=== PATIENT | male | born 1930 | race Caucasian/White ===

== ENCOUNTER 2017-03-10 10:22 | Emergency (ER) | payer BC ==
[~2017-03-10] VITALS: Ht 165.1 cm; Wt 58.8 kg
--- NOTE | 2017-03-10 11:18 | EMERGENCY ROOM VISIT NOTE ---
History Report prepared by Tomer: Kofi Blount Under the Supervision of: Dr. Kwabena Glover M.D. First contact with patient: 10:36 Chief Complaint: FALL Stated Complaint: FALL,PAIN WHEN WALKING History of Present Illness The patient is an 86 year old male who presents to the Emergency Room with complaints of a sudden fall occurring a week ago, and he states that he hurt his left hip which started hurting yesterday. The patient states that he fell a week ago, and he has not been able to walk due to the pain, though he states that the pain is slowly decreasing. The patient states that he was getting out of bed and he slipped. He denies any loss of consciousness, hitting his head, neck pain, chest pain, abdominal pain, and back pain. He states that he has been having some left hip weakness due to the pain. The patient's states that he is not on any blood thinners, and he is having early Alzheimer's symptoms. He denies any diabetes. The states that the patient only eats tofu and drinks Ensure, and this is why he is weak. Source of History: patient, spouse/significant other Onset: a week ago Position: other (global) Quality: other (fall) Timing: other (sudden) Associated Symptoms: No abdominal pain, No back pain, No chest pain, No neck pain Note: Associated symptoms: Left hip pain Review of Systems See HPI for pertinent positives & negatives. A total of 10 systems reviewed and were otherwise negative. Past Medical & Surgical Medical Problems: (1) Alzheimer's dementia (2) Sacral fracture Old medical records were reviewed. Nurse's notes were reviewed and I agree with. Social History Smoking Status: Never Smoker Marital Status: Housing Status: lives with significant other Occupation Status: retired Current/Historical Medications Scheduled Cholecalciferol (Vitamin D3), 1 TAB PO DAILY Cyanocobalamin (Vitamin B-12), 1 TAB PO DAILY Donepezil Hydrochloride (Aricept), 1 TAB PO DAILY Finasteride (Proscar), 1 TAB PO DAILY Memantine (Namenda), 1 TAB PO DAILY Terazosin Hcl (Hytrin), 1 CAP PO DAILY Allergies Coded Allergies: No Known Allergies (Unverified , 03/10/17) Physical Exam Vital Signs Date Time Temp Pulse Resp B/P Pulse Ox O2 Delivery O2 Flow Rate FiO2 03/10/17 11:58 63 16 133/74 94 Room Air 03/10/17 10:31 36.4 86 17 102/56 92 Room Air Physical Exam General: Non-ill appearing older male in no acute distress. Mild dementia but answers all questions appropriately. HEENT: Normal cephalic atraumatic. Pupils are equal round and reactive to light. Extraocular movements are intact. Oropharynx is pink with moist mucous membranes. No swelling of the mouth lips or tongue. Neck: Supple with a midline trachea. No meningeal signs or stiffness, no JVD or bruits. No Stridor. Chest: Clear to auscultation bilaterally. No wheezes or rhonchi. No increased work of breathing. Heart: regular rate and rhythm. Abdomen: No signs of trauma. Soft nontender, nondistended without rebound guarding or rigidity. Extremities: The extremity is not shortened or deformed. Minimal tenderness with movement of the hip. Mild tenderness to the posterior hip. No cyanosis clubbing or edema. No calf tenderness or assymetry Spine/Back. Non tender to palpation. No CVA tenderness Skin: Good turgor without rashes. Neurologic exam: Cranial nerves two through 12 are intact. Motor and sensation are intact and symmetrical throughout. Medical Decision & Procedures ER Provider Diagnostic Interpretation: Radiology results as stated below per my review and radiologist interpretation: LUMBAR SPINE CT, PELVIS CT CT DOSE: 914.77 mGy.cm HISTORY: Fall. Lumbar spine and pelvic pain. eval for trauma TECHNIQUE: Multiaxial CT images of the lumbar spine and pelvis were performed and reformatted in the sagittal and coronal plane without the use of contrast. COMPARISON: None. FINDINGS: No fractures or subluxation within the lumbar spine. Mild to moderate disc space narrowing at L4-L5. Moderate disc space narrowing at L5-S1. There are a few scattered sclerotic foci within the lumbar spine and sacrum. These favor bone islands. Paraspinal soft tissues are unremarkable. Nondisplaced horizontal fracture within the sacrum at the S2 level. Mild presacral edema. No fracture or dislocation within the bilateral hips. IMPRESSION: 1. No fracture or subluxation within the lumbar spine. 2. Nondisplaced sacral fracture at the S2 level. Electronically signed by: Giles Brizuela M.D. 03/10/2017 11:54 AM Dictated Date/Time: 03/10/2017 11:[address], PELVIS CT CT DOSE: 914.77 mGy.cm HISTORY: Fall. Lumbar spine and pelvic pain. eval for trauma TECHNIQUE: Multiaxial CT images of the lumbar spine and pelvis were performed and reformatted in the sagittal and coronal plane without the use of contrast. COMPARISON: None. FINDINGS: No fractures or subluxation within the lumbar spine. Mild to moderate disc space narrowing at L4-L5. Moderate disc space narrowing at L5-S1. There are a few scattered sclerotic foci within the lumbar spine and sacrum. These favor bone islands. Paraspinal soft tissues are unremarkable. Nondisplaced horizontal fracture within the sacrum at the S2 level. Mild presacral edema. No fracture or dislocation within the bilateral hips. IMPRESSION: 1. No fracture or subluxation within the lumbar spine. 2. Nondisplaced sacral fracture at the S2 level. Electronically signed by: Giles Brizuela M.D. 03/10/2017 11:54 AM Dictated Date/Time: 03/10/2017 11:46 AM Laboratory Results 03/10/17 11:15 Red Blood Count 4.32, Mean Corpuscular Volume 95.8, Mean Corpuscular Hemoglobin 31.9, Mean Corpuscular Hemoglobin Concent 33.3, Mean Platelet Volume 11.8, Neutrophils (%) (Auto) 83.2, Lymphocytes (%) (Auto) 7.9, Monocytes (%) (Auto) 7.7, Eosinophils (%) (Auto) 0.7, Basophils (%) (Auto) 0.1, Neutrophils # (Auto) 6.18, Lymphocytes # (Auto) 0.59, Monocytes # (Auto) 0.57, Eosinophils # (Auto) 0.05, Basophils # (Auto) 0.01 Test 03/10/17 11:15 White Blood Count 7.43 K/uL (4.8-10.8) Red Blood Count 4.32 M/uL (4.7-6.1) Hemoglobin 13.8 g/dL (14.0-18.0) Hematocrit 41.4 % (42-52) Mean Corpuscular Volume 95.8 fL (80-100) Mean Corpuscular Hemoglobin 31.9 pg (25-34) Mean Corpuscular Hemoglobin Concent 33.3 g/dl (32-36) Platelet Count 254 K/uL (130-400) Mean Platelet Volume 11.8 fL (7.4-10.4) Neutrophils (%) (Auto) 83.2 % Lymphocytes (%) (Auto) 7.9 % Monocytes (%) (Auto) 7.7 % Eosinophils (%) (Auto) 0.7 % Basophils (%) (Auto) 0.1 % Neutrophils # (Auto) 6.18 K/uL (1.4-6.5) Lymphocytes # (Auto) 0.59 K/uL (1.2-3.4) Monocytes # (Auto) 0.57 K/uL (0.11-0.59) Eosinophils # (Auto) 0.05 K/uL (0-0.5) Basophils # (Auto) 0.01 K/uL (0-0.2) RDW Standard Deviation 46.1 fL (36.4-46.3) RDW Coefficient of Variation 13.2 % (11.5-14.5) Immature Granulocyte % (Auto) 0.4 % Immature Granulocyte # (Auto) 0.03 K/uL (0.00-0.02) Prothrombin Time 11.4 SECONDS (9.0-12.0) Prothromb Time International Ratio 1.1 (0.9-1.1) Activated Partial Thromboplast Time 25.8 SECONDS (21.0-31.0) Partial Thromboplastin Ratio 1.0 Total Bilirubin 0.5 mg/dl (0.2-1) Direct Bilirubin 0.1 mg/dl (0-0.2) Aspartate Amino Transf (AST/SGOT) 15 U/L (15-37) Alanine Aminotransferase (ALT/SGPT) 20 U/L (12-78) Alkaline Phosphatase 209 U/L (45-117) Troponin I < 0.015 ng/ml (0-0.045) Total Protein 6.2 gm/dl (6.4-8.2) Albumin 3.0 gm/dl (3.4-5.0) Lipase 127 U/L (73-393) Laboratory studies as stated above per my review. ECG Indication: other (fall) Rate (beats per minute): 70 Rhythm: normal sinus, other (sinus arrhythmia) Findings: other (poor R wave progression, non-specific T wave abnormality) Comparison ECG Date: 05/08/1999 Change: Bradycardia has resolved ED Course 1036: Past medical records reviewed. The patient was evaluated in room C3, and a complete history and physical examination were performed. 1217: I reevaluated the patient, and he was feeling well. 1221: I talked to the case mgr about this patient's case. 1250: I discussed the patient's case with Jane Pereira PA-C. She is going to evaluate the patient for further treatment Medical Decision Differentials include, but are not limited to; pelvic fracture, hip fracture, electrolyte or metabolic abnormality This ptient comes in as described above. He had a mechanical fall about 6 days ago and has pain along his left posterior hip. He's been unable ambulate because of this and and has been using a wheelchair. His daughter came in town and brought him to the ER. He has no other complaints there is no syncope or chest pain. EKG and multiple blood tests was obtained there is nothing to suggest acute coronary syndrome or arrhythmia. He has nothing to suggest infection or significant anemia. CAT scan was obtained that shows sacral fracture. He's been having a hard time with this and the family does not think he's safe to be at home. I had our case management team evaluate him in the ER. They have attempted to get him placed in [facility] for rehabilitation. Unfortunately [facility] cannot take him today but likely can tomorrow. In light of this, the patient will be admitted for PT and OT evaluation as well as likely placement in a rehabilitation facility. Consults Time Called: 1225 Consulting Physician: Jane Pereira PA-C Returned Call: 1250 I discussed the patient's case with Jane Pereira PA-C. She is going to evaluate the patient for further treatment Impression Primary Impression: Sacral fracture Additional Impressions: Ambulatory dysfunction Alzheimer's dementia Scribe Attestation The scribe's documentation has been prepared under my direction and personally reviewed by me in its entirety. I confirm that the note above accurately reflects all work, treatment, procedures, and medical decision making performed by me. Departure Information Dispostion Being Evaluated By Hospitalist Kenny Ly M.D. (PCP) Patient Instructions My [facility] Problem Qualifiers
[2017-03-10 11:43] LABS: BASO % 0.1 %; BASO ABS # 0.01 K/uL (0-0.2); COMPLETE YES; EOS % 0.7 %; HEMATOCRIT 41.4 % (42-52); IG% 0.4 %; LYMPH % 7.9 %; LYMPH ABS # 0.59 K/uL (1.2-3.4); MEAN CELL VOLUME 95.8 fL (80-100); MEAN CORPUSCULAR HEMOGLOBIN 31.9 pg (25-34); MEAN CORPUSCULAR HGB CONC 33.3 g/dl (32-36); MEAN PLATELET VOLUME 11.8 fL (7.4-10.4); MONO % 7.7 %; NEUT % 83.2 %; PLATELET COUNT 254 K/uL (130-400); RED BLOOD COUNT 4.32 M/uL (4.7-6.1); WHITE BLOOD COUNT 7.43 K/uL (4.8-10.8)
[2017-03-10] MEDS ORDERED: NMN5 PO (11:51)
[2017-03-10] MEDS ORDERED: FINA5TAB PO (11:51)
[2017-03-10] MEDS ORDERED: CHOL1000 PO (11:51)
[2017-03-10] MEDS ORDERED: DONE10TA12 PO (11:51)
[2017-03-10] MEDS ORDERED: CYAN100T PO (11:51)
[2017-03-10] MEDS ORDERED: HYT/2 PO (11:51)
--- NOTE | 2017-03-10 11:56 | DIAGNOSTIC IMAGING REPORT ---
LUMBAR SPINE CT, PELVIS CT CT DOSE: 914.77 mGy.cm HISTORY: Fall. Lumbar spine and pelvic pain. eval for trauma TECHNIQUE: Multiaxial CT images of the lumbar spine and pelvis were performed and reformatted in the sagittal and coronal plane without the use of contrast. COMPARISON: None. FINDINGS: No fractures or subluxation within the lumbar spine. Mild to moderate disc space narrowing at L4-L5. Moderate disc space narrowing at L5-S1. There are a few scattered sclerotic foci within the lumbar spine and sacrum. These favor bone islands. Paraspinal soft tissues are unremarkable. Nondisplaced horizontal fracture within the sacrum at the S2 level. Mild presacral edema. No fracture or dislocation within the bilateral hips. IMPRESSION: 1. No fracture or subluxation within the lumbar spine. 2. Nondisplaced sacral fracture at the S2 level. Electronically signed by: Giles Brizuela M.D. 03/10/2017 11:54 AM Dictated Date/Time: 03/10/2017 11:46 AM
[2017-03-10 11:58] LABS: INR 1.1 (0.9-1.1); PROTHROMBIN TIME (PATIENT) 11.4 SECONDS (9.0-12.0)
[2017-03-10 12:01] LABS: BLOOD UREA NITROGEN 26 mg/dl (7-18); BUN/CREATININE RATIO 29.9 (10-20); CALCIUM 8.5 mg/dl (8.5-10.1); CARBON DIOXIDE 28 mmol/L (21-32); CHLORIDE 108 mmol/L (98-107); CREATININE 0.87 mg/dl (0.60-1.40); GLUCOSE 122 mg/dl (70-99); POTASSIUM 3.9 mmol/L (3.5-5.1); SODIUM 143 mmol/L (136-145)
[2017-03-10 12:06] LABS: ALKALINE PHOSPHATASE 209 U/L (45-117); ALT/SGPT 20 U/L (12-78); AST/SGOT 15 U/L (15-37)
[2017-03-10] MEDS ORDERED: MAGNESIUM HYDROXIDE SUSP 30 ML UDC PO PRN (13:45)
[2017-03-10] MEDS ORDERED: ONDANSETRON INJ 2 MG/ML 2 ML VIAL IV PRN (13:45)
[2017-03-10] MEDS ORDERED: ACETAMINOPHEN 325 MG TAB PO PRN (13:45)
--- NOTE | 2017-03-10 13:46 | History and Physical ---
History & Physical Date & Time of Service: March 10, 2017 at 12:59 Chief Complaint: Fall,Pain When Walking Primary Care Physician: Ji Reyes M.D. History of Present Illness Source: patient, family, clinic records, hospital records This patient is a pleasant 86-year-old male that presents to the emergency department with complaints of left hip pain and lower back pain. The patient sustained a fall 6 days ago while getting out of bed. He reports that he slipped. He denies any symptoms prior such as dizziness, heart palpitations, chest pain or pressure or severe headache. He landed on his buttocks. He denies hitting his head. He has had difficulty ambulating since the fall. Any movement seems to make the pain worse. He has been using Aspercreme, which helps with the pain at rest. He denies any recent illnesses. He does note a poor appetite. He is a vegetarian. The patient's says that he only eats a few pieces of tofu and and drinks Ensure daily. The patient does note that a few weeks ago he was having difficulty swallowing. He had a sensation that something was getting caught in his throat. This has improved over the last several weeks on its own. Past Medical/Surgical History Dementia Osteoporosis BPH History of squamous cell carcinoma Mitral regurgitation Family History Omitted secondary to age Social History Smoking Status: Never Smoker Alcohol Use: none Marital Status: Housing status: lives with significant other (lives with his . They spend the long here and the other months in [place]) Occupational Status: retired Multi-Drug Resistant Organisms History of MDRO: No Allergies Coded Allergies: No Known Allergies (Unverified , 03/10/17) Home Medications Scheduled Cholecalciferol (Vitamin D3), 1 TAB PO DAILY Cyanocobalamin (Vitamin B-12), 1 TAB PO DAILY Donepezil Hydrochloride (Aricept), 1 TAB PO DAILY Finasteride (Proscar), 1 TAB PO DAILY Memantine (Namenda), 1 TAB PO DAILY Terazosin Hcl (Hytrin), 1 CAP PO DAILY Review of Systems 10 system review performed and negative unless noted in HPI or below Physical Exam Vital Signs Date Time Temp Pulse Resp B/P Pulse Ox O2 Delivery O2 Flow Rate FiO2 03/10/17 11:58 63 16 133/74 94 Room Air 03/10/17 10:31 36.4 86 17 102/56 92 Room Air General Appearance: no apparent distress, + pertinent finding (lying flat in bed) Head: normocephalic Eyes: EOMI ENT: + pertinent finding (oral mucosa fairly moist) Neck: no JVD Respiratory/Chest: lungs clear Cardiovascular: regular rate, rhythm Abdomen/GI: normal bowel sounds, non tender, soft Extremities/Musculoskelatal: no calf tenderness, no pedal edema, + pertinent finding (healing eschar noted to the left balderrama) Neurologic/Psych: alert (alert and answering questions appropriately. Unsure of the year. Significant difficulty with leg raise bilaterally. Strength 3/5 bilaterally in the lower extremities.) Skin: warm/dry Diagnostics Laboratory Results Results Past 24 Hours Test 03/10/17 11:15 Range/Units White Blood Count 7.43 4.8-10.8 K/uL Red Blood Count 4.32 4.7-6.1 M/uL Hemoglobin 13.8 14.0-18.0 g/dL Hematocrit 41.4 42-52 % Mean Corpuscular Volume 95.8 80-100 fL Mean Corpuscular Hemoglobin 31.9 25-34 pg Mean Corpuscular Hemoglobin Concent 33.3 32-36 g/dl Platelet Count 254 130-400 K/uL Mean Platelet Volume 11.8 7.4-10.4 fL Neutrophils (%) (Auto) 83.2 % Lymphocytes (%) (Auto) 7.9 % Monocytes (%) (Auto) 7.7 % Eosinophils (%) (Auto) 0.7 % Basophils (%) (Auto) 0.1 % Neutrophils # (Auto) 6.18 1.4-6.5 K/uL Lymphocytes # (Auto) 0.59 1.2-3.4 K/uL Monocytes # (Auto) 0.57 0.11-0.59 K/uL Eosinophils # (Auto) 0.05 0-0.5 K/uL Basophils # (Auto) 0.01 0-0.2 K/uL RDW Standard Deviation 46.1 36.4-46.3 fL RDW Coefficient of Variation 13.2 11.5-14.5 % Immature Granulocyte % (Auto) 0.4 % Immature Granulocyte # (Auto) 0.03 0.00-0.02 K/uL Prothrombin Time 11.4 9.0-12.0 SECONDS Prothromb Time International Ratio 1.1 0.9-1.1 Activated Partial Thromboplast Time 25.8 21.0-31.0 SECONDS Partial Thromboplastin Ratio 1.0 Sodium Level 143 136-145 mmol/L Potassium Level 3.9 3.5-5.1 mmol/L Chloride Level 108 98-107 mmol/L Carbon Dioxide Level 28 21-32 mmol/L Anion Gap 7.0 3-11 mmol/L Blood Urea Nitrogen 26 7-18 mg/dl Creatinine 0.87 0.60-1.40 mg/dl Estimated GFR () 89.9 Estimated GFR (Non- 77.6 BUN/Creatinine Ratio 29.9 10-20 Random Glucose 122 70-99 mg/dl Calcium Level 8.5 8.5-10.1 mg/dl Total Bilirubin 0.5 0.2-1 mg/dl Direct Bilirubin 0.1 0-0.2 mg/dl Aspartate Amino Transf (AST/SGOT) 15 15-37 U/L Alanine Aminotransferase (ALT/SGPT) 20 12-78 U/L Alkaline Phosphatase 209 45-117 U/L Troponin I < 0.015 0-0.045 ng/ml Total Protein 6.2 6.4-8.2 gm/dl Albumin 3.0 3.4-5.0 gm/dl Lipase 127 73-393 U/L Diagnostic Radiology Patient Name: CASTILLO FERRELL Unit Number: [id number] Dictated: 03/10/171145 Transcribed: 03/10/171145 [facility] Printed Date/Time: [~ rep prt dt]/[~ rep prt tm] [~ rep ct labl] - [~ rep ct ivnm] [facility] [place] [address] Dictated: 03/10/171145 Transcribed: 03/10/171145 [facility] Printed Date/Time: [~ rep prt dt]/[~ rep prt tm] [~ rep ct labl] - [~ rep ct ivnm] LUMBAR SPINE CT, PELVIS CT CT DOSE: 914.77 mGy.cm HISTORY: Fall. Lumbar spine and pelvic pain. eval for trauma TECHNIQUE: Multiaxial CT images of the lumbar spine and pelvis were performed and reformatted in the sagittal and coronal plane without the use of contrast. COMPARISON: None. FINDINGS: No fractures or subluxation within the lumbar spine. Mild to moderate disc space narrowing at L4-L5. Moderate disc space narrowing at L5-S1. There are a few scattered sclerotic foci within the lumbar spine and sacrum. These favor bone islands. Paraspinal soft tissues are unremarkable. Nondisplaced horizontal fracture within the sacrum at the S2 level. Mild presacral edema. No fracture or dislocation within the bilateral hips. IMPRESSION: 1. No fracture or subluxation within the lumbar spine. 2. Nondisplaced sacral fracture at the S2 level. Electronically signed by: Giles Brizuela M.D. 03/10/2017 11:54 AM Dictated Date/Time: 03/10/2017 11:46 AM The status of this report is Signed. Draft = Not yet reviewed or approved by Radiologist. Signed = Reviewed and approved by Radiologist. <AttendingPhy></AttendingPhy> <FamilyPhy>Ji Reyes M.D.</FamilyPhy> < PrimaryPhy>Ji Reyes M.D.</PrimaryPhy> <UnitNumber>[id number]</UnitNumber> <VisitNumber>[id number]</VisitNumber> <PatientName>CASTILLO FERRELL</ PatientName> <DateOfBirth>1930</DateOfBirth> <Location>[facility]</Location> < ServiceDate>03/10/17</ServiceDate> <MNE>ESINDI</MNE> <OrderingPhy>Kwabena Glover M.D.</OrderingPhy> <OrderingPhyMNE>f rep ord dr krueger</OrderingPhyMNE> < DictatingPhyMNE>f rep dict dr krueger</DictatingPhyMNE> <CCListMNE>f rep ct pati</ CCListMNE> <AdmittingPhyMNE>f pt admit dr krueger</AdmittingPhyMNE> <AttendingPhyMNE >f pt attend dr krueger</AttendingPhyMNE> <ConsultingPhyMNE>f pt consult dr krueger</ConsultingPhyMNE> <FamilyPhyMNE>f pt fam dr krueger</FamilyPhyMNE> <OtherPhyMNE>f pt other dr krueger</OtherPhyMNE> < PrimaryPhyMNE>f pt prim care dr krueger</PrimaryPhyMNE> <ReferringPhyMNE>f pt referring dr krueger</ReferringPhyMNE> Impression Assessment and Plan 86-year-old male presents to the emergency department with weakness, status post fall found to have a sacral fracture Ambulatory dysfunction, weakness, fall, sacral fracture -Observe on the medical floor -Tylenol every 6 hours as needed for pain. -Ultram for more severe pain -PT/OT evaluation -Case management for placement, [facility] ?dysphagia -speech eval BPH -Continue finasteride and Proscar Dementia -Continue Aricept DVT prophylaxis -Consider chemical means the patient is not discharged tomorrow -TEDS, SCDs CODE STATUS -LEVEL I FULL CODE This chart was completed in part utilizing [employer] Speech Voice Recognition software. Attempts were made to minimize the grammatical errors, random word insertions, pronoun errors and incomplete sentences. Any formal questions or concerns about the content, text or information contained within the body of this dictation should be directly addressed to the provider for clarification. i personally examined pt and verified all rodríguez points w A [facility] PAC feeling OK at rest. no new complaints after seen by A [facility] PAC, otherwise as above ros otherwise negative except for as above vitals noted nad breathing unlabored no pallor or icterus sacral fracture - pain control, PT/OT, rehab once able osteoporosis - on prolia q6 months. check vitamin D level otherwise as above Level of Care Med/Surg Resuscitation Status FULL RESUSCITATION VTE Prophylaxis Given or contraindicated: T.E.D. Stockings, SCD's
[2017-03-10] MEDS ORDERED: IV FLUIDS COMPLETED PRN ×3 (15:15→18:45)
[2017-03-10 15:42] VITALS: BP 157/80; PULSE 71; TEMP 36.4; O2SAT 93; Ht 165.1 cm; Wt 58.8 kg
[2017-03-10 20:30] VITALS: BP 144/85; PULSE 73; O2SAT 94
[2017-03-11 00:03] VITALS: BP 154/85; PULSE 73; TEMP 36.5; O2SAT 95
[2017-03-11 07:47] VITALS: BP 167/97; PULSE 68; TEMP 36.4; O2SAT 95
[2017-03-11] MEDS: ASPIRIN 81 MG ECTAB PO SCH (08:20)
[2017-03-11] MEDS: DONEPEZIL HCL 5 MG TAB PO SCH (08:20)
[2017-03-11] MEDS: FINASTERIDE 5 MG TAB PO SCH (08:20)
[2017-03-11 09:33] VITALS: BP 126/85; PULSE 69; O2SAT 93
[2017-03-11 12:36] LABS: BUN/CREATININE RATIO 29.1 (10-20); CREATININE 0.81 mg/dl (0.60-1.40); MAGNESIUM 2.4 mg/dl (1.8-2.4)
[2017-03-11 12:50] LABS: CALCIUM 9.1 mg/dl (8.5-10.1)
[2017-03-11] MEDS: BOOST PLUS VANILLA PO SCH ×6 (14:22→20:55)
[2017-03-11 16:16] VITALS: BP 100/67; PULSE 89; TEMP 36.9; O2SAT 93
[2017-03-11] MEDS: MEMANTINE 10 MG TAB PO SCH (17:02)
[2017-03-11] MEDS: LIDODERM (LIDOCAINE) PATCH 5% TD SCH (17:02)
--- NOTE | 2017-03-12 00:05 | Progress Note ---
Subjective Date of Service: March 11, 2017. Subjective Pt evaluation today including: conversation w/ patient, conversation w/ family ( at bedside), physical exam, chart review, lab review, review of studies ( pelvic CT), review of inpatient medication list Pain: pelvic/sacral area - mild PO Intake: fair no issues overnight worked with PT and they felt he should consider rehab confirms they just moved from [place] 2 weeks ago the fall he had was his first fall he does have a stooped posture and slow gait at baseline - states he uses a walking stick at home the recent fall was accidental - he denies that he had prodromal dizziness, syncope, etc Problem List Medical Problems: (1) Ambulatory dysfunction Status: Acute Review of Systems Constitutional: No fever Respiratory: No dyspnea on exertion, No shortness of breath Cardiac: No chest pain Abdomen: No pain Musculoskeletal: + see HPI, No joint pain, No muscle pain, No swelling Objective Vital Signs Date Time Temp Pulse Resp B/P Pulse Ox O2 Delivery O2 Flow Rate FiO2 03/11/17 16:16 36.9 89 18 100/67 93 Room Air 03/11/17 16:00 Room Air 03/11/17 09:33 69 93 03/11/17 08:00 Room Air 03/11/17 07:47 36.4 68 20 167/97 95 03/11/17 00:03 36.5 73 16 154/85 95 Room Air 03/11/17 00:00 Room Air Physical Exam General Appearance: no apparent distress, + thin ENT: pharynx normal Neck: no JVD Respiratory/Chest: lungs clear, no respiratory distress, no accessory muscle use Cardiovascular: regular rate, rhythm, no gallop, no murmur Abdomen: normal bowel sounds, non tender, soft, no organomegaly Extremities: no pedal edema Neurologic/Psychiatric: no motor/sensory deficits, alert Comments: back - tender over sacral region to palpation Laboratory Results Last 24 Hours Test 03/11/17 11:25 Sodium Level 140 mmol/L Potassium Level 4.0 mmol/L Chloride Level 106 mmol/L Carbon Dioxide Level 26 mmol/L Anion Gap 8.0 mmol/L Blood Urea Nitrogen 24 mg/dl Creatinine 0.81 mg/dl Est Creatinine Clear Calc Drug Dose 53.4 ml/min Estimated GFR () 92.6 Estimated GFR (Non- 79.9 BUN/Creatinine Ratio 29.1 Random Glucose 87 mg/dl Calcium Level 9.1 mg/dl Magnesium Level 2.4 mg/dl Vitamin B12 Level > 2000 pg/mL Folate > 24.00 ng/mL Assessment and Plan 86yo male - 1. sacral fracture - pain control, nonoperative management, PT, OT. Add lidoderm patches. 2. dementia - resume aricept and namenda. No behavioral disturbance at this time. 3. gait disturbance - check b12, folate, etc due to vegetarian diet. Lspine DJD could be contributing. Neuropathy possible. Gait training via PT, OT. 4. BPH - continue outpatient meds. 5. DVT proph - heparin 5000 BID. dispo - completed PEER to PEER with his insurance co -- acute inpatient rehab denied. cleared for SNF level of care, however address in the AM Continued [facility] stay due to: inadequate oral pain control Discharge planning: uncertain
[2017-03-12 01:09] VITALS: BP 147/93; PULSE 99; TEMP 36.5; O2SAT 93
[2017-03-12 07:25] VITALS: BP 149/91; PULSE 63; TEMP 36.5; O2SAT 93
[2017-03-12] MEDS: BOOST PLUS VANILLA PO SCH ×8 (08:22→21:00)
[2017-03-12] MEDS: FINASTERIDE 5 MG TAB PO SCH (08:22)
[2017-03-12] MEDS: DONEPEZIL HCL 5 MG TAB PO SCH (08:22)
[2017-03-12] MEDS: MEMANTINE 10 MG TAB PO SCH (08:22)
[2017-03-12] MEDS: ASPIRIN 81 MG ECTAB PO SCH (08:22)
[2017-03-12] MEDS: LIDODERM (LIDOCAINE) PATCH 5% TD SCH (08:23)
[2017-03-12] MEDS: HEPARIN SOD 5000 UNIT/0.5 ML CARP SQ SCH ×2 (08:29→21:38)
[2017-03-12] MEDS: ACETAMINOPHEN 500 MG TAB PO SCH ×3 (09:00→21:34)
[2017-03-12] MEDS ORDERED: TRAMADOL HCL 50 MG TAB PO PRN (09:00)
--- NOTE | 2017-03-12 11:59 | Hospitalist Progress Note ---
Hospitalist Progress Note Date of Service March 12, 2017. (Manisha Shrestha ., NANCY) Subjective Pt evaluation today including: conversation w/ patient, physical exam, chart review, lab review, review of studies, review of inpatient medication list Voiding: no voiding problems, no incontinence Patient states he is feeling well. He was sitting upright in bed, eating lunch. Admits to decreased appetite because of decreased activity level- encouraged oral intake and boost. Patient denies any fever, chills, sweats, lightheadedness , dizziness, vision changes, CP, palpitations, edema, SOB, wheezing, cough, abdominal pain, nausea, vomiting, diarrhea, urinary symptoms, melena, numbness/ tingling, weakness, muscle/joint pain, anxiety/depression, active bleeding, or new skin discoloration/changes. (Manisha Shrestha ., SASKIAC) Medications Current Inpatient Medications Medications (Trade) Dose Ordered Sig/Prince Route Start Time Stop Time Status Last Admin Dose Admin Acetaminophen (Tylenol Tab) 650 mg Q4H PRN PO 03/10/17 13:45 04/09/17 13:44 Future Hold Magnesium Hydroxide (Milk Of Magnesia Susp) 30 ml Q6H PRN PO 03/10/17 13:45 04/09/17 13:44 Ondansetron HCl (Zofran Inj) 4 mg Q6H PRN IV 03/10/17 13:45 04/09/17 13:44 Finasteride (Proscar Tab) 5 mg QAM PO 03/11/17 09:00 04/10/17 08:59 03/12/17 08:22 5 MG Donepezil HCl (Aricept Tab) 5 mg QAM PO 03/11/17 09:00 04/10/17 08:59 03/12/17 08:22 5 MG Terazosin HCl (Hytrin Cap) 10 mg HS PO 03/10/17 21:00 04/09/17 20:59 03/11/17 20:55 10 MG Aspirin (Ecotrin Tab) 81 mg QAM PO 03/11/17 09:00 04/10/17 08:59 03/12/17 08:22 81 MG Miscellaneous (Iv Fluids Completed) 1 ea PRN PRN N/A 03/10/17 18:45 03/10/18 18:44 Enteral Nutritional Formula (Boost Plus Vanilla) 1 can QID PO 03/11/17 13:00 04/10/17 12:59 03/12/17 08:22 1 CAN Memantine (Namenda Tab) 10 mg QAM PO 03/11/17 15:45 04/10/17 15:44 03/12/17 08:22 10 MG Lidocaine (Lidoderm Patch 5%) 2 patch QAM TD 03/11/17 15:45 04/10/17 15:44 03/12/17 08:23 2 PATCH Miscellaneous (Remove Lidoderm Patch) 1 ea PM N/A 03/11/17 21:00 04/10/17 20:59 03/11/17 20:55 1 EA Heparin Sodium (Porcine) (Heparin Sq 5000 Unit/0.5ml) 5,000 unit Q12H SQ 03/12/17 09:00 04/11/17 08:59 03/12/17 08:29 5,000 UNIT Acetaminophen (Tylenol Tab) 1,000 mg Q8 PO 03/12/17 09:00 04/11/17 08:59 Tramadol HCl (Ultram Tab) 50 mg Q6H PRN PO 03/12/17 09:00 04/11/17 08:59 (Manisha Shrestha, PA-C) Objective Vital Signs Date Time Temp Pulse Resp B/P Pulse Ox O2 Delivery O2 Flow Rate FiO2 03/12/17 08:00 Room Air 03/12/17 07:25 36.5 63 20 149/91 93 03/12/17 01:09 36.5 99 20 147/93 93 Room Air 03/12/17 00:00 Room Air 03/11/17 16:16 36.9 89 18 100/67 93 Room Air 03/11/17 16:00 Room Air (Manisha Shrestha, PA-C) Physical Exam General Appearance: no apparent distress, + thin Eyes: normal inspection, PERRL ENT: hearing grossly normal, + pertinent finding (dentures ) Neck: supple Respiratory/Chest: lungs clear, no respiratory distress, no accessory muscle use Cardiovascular: regular rate, rhythm Abdomen: normal bowel sounds, non tender, soft Extremities: no pedal edema, no calf tenderness Neurologic/Psychiatric: alert, normal mood/affect, oriented x 3 Skin: normal color, warm/dry, no rash (Murarik, Manisha ., PA-C) Assessment and Plan 86-year-old male presents to the emergency department with weakness, status post fall found to have a sacral fracture Ambulatory dysfunction, weakness, fall, sacral fracture - Admit med/surg observation - Tylenol every 6 hours as needed for pain, Ultram for more severe pain, and Lidoderm patch- pain well-controlled - Consulted PT/OT - b12/folate and vitamin D- WNL BPH: Continue Hytrin and Proscar Dementia: Continue Aricept and Namenda DVT prophylaxis: Heparin, TEDS, SCDs CODE STATUS: LEVEL I, FULL CODE Dispo: - Discharge pending placement- case management involved- family appeal pending -- Patient and family would really like [facility] option - PT/OT recommendations- inpatient rehab (Manisha Shrestha, PA-C) Attending Attestation: Pt seen/examined, chart reviewed, care plan d/w NOEMI Shrestha. I agree w/ the rodríguez components of her documentation. No issues overnight Doing ok with therapy minimal pain in sacral area gen - nad heart - RRR lungs - CTA b/l abd - soft, NT ext - no edema A/P: ambulatory dysfunction recent fall with sacral fracture dementia pt's family appealing [facility] denial back-up option is rehab at [facility] at [facility] Ulysses OCHOA MD (Lion Ochoa MD)
[2017-03-12 15:15] VITALS: BP 144/70; PULSE 66; TEMP 36.6; O2SAT 94
[2017-03-13] VITALS: O2SAT 94
[2017-03-13 00:09] VITALS: BP 137/85; PULSE 64; TEMP 36.4; O2SAT 96
[2017-03-13] MEDS: ACETAMINOPHEN 500 MG TAB PO SCH (06:06)
[2017-03-13] MEDS: LIDODERM (LIDOCAINE) PATCH 5% TD SCH (07:56)
[2017-03-13] MEDS: FINASTERIDE 5 MG TAB PO SCH (07:56)
[2017-03-13] MEDS: ASPIRIN 81 MG ECTAB PO SCH (07:57)
[2017-03-13] MEDS: DONEPEZIL HCL 5 MG TAB PO SCH (07:57)
[2017-03-13] MEDS: BOOST PLUS VANILLA PO SCH ×4 (07:57→13:28)
[2017-03-13] MEDS: MEMANTINE 10 MG TAB PO SCH (07:57)
[2017-03-13 07:58] VITALS: BP 123/64; PULSE 73; TEMP 36.5; O2SAT 93
[2017-03-13] MEDS: HEPARIN SOD 5000 UNIT/0.5 ML CARP SQ SCH (07:59)
[2017-03-13] MEDS ORDERED: LDDP5 TD (13:12)
[2017-03-13] MEDS ORDERED: ACET-1138 PO (13:12)
[2017-03-13] MEDS ORDERED: NUTR-977 PO (13:12)
[2017-03-13] MEDS ORDERED: ASPEC81 PO (13:12)
--- NOTE | 2017-03-13 13:17 | Discharge Instructions ---
Discharge Instructions Date of Service March 13, 2017. Admission Reason for Admission: Sacral Fracture Discharge Discharge Diagnosis / Problem: Sacral fracture Discharge Goals Goal(s): Decrease discomfort, Improve function, Increase independence, Improve nutritional status, Learn about illness, Diagnostic testing, Prevent Disease Progression Activity Recommendations Activity Level: Assistance Required Therapies: Physical Therapy, Occupational Therapy . Additional Information Patient informed of condition: Yes Advance Directives: Yes DNR: No Level of Care: Acute Rehab Communicable Disease: No Prognosis: Stable Andino Catheter: No Instructions / Follow-Up Instructions / Follow-Up Your pain has been well controlled in the hospital with Tylenol and Lidoderm patch- [facility] will continue to help manage your pain Follow-up with [facility] provider within 24-48 hrs Please follow-up with your PCP within 5-7 days after discharge from [facility] Please follow-up/keep all of your subspecialty appointments Current Hospital Diet Patient's current hospital diet: Regular Diet, Vegetarian Diet Discharge Diet Recommended Diet: Vegetarian Diet Pending Studies Studies pending at discharge: no Physician Orders On Transfer Special Precautions: Fall precautions Vital Signs: Routine Additional Orders: Pain has been well controlled with Tylenol 1,000 mg q8hrs and Lidoderm patch ( last patch placed on 03/13 at 0756) POLST Discussion: Not Applicable Laboratory Results Last Resulted CBC 03/10/17 11:15 Red Blood Count 4.32, Mean Corpuscular Volume 95.8, Mean Corpuscular Hemoglobin 31.9, Mean Corpuscular Hemoglobin Concent 33.3, Mean Platelet Volume 11.8, Neutrophils (%) (Auto) 83.2, Lymphocytes (%) (Auto) 7.9, Monocytes (%) (Auto) 7.7, Eosinophils (%) (Auto) 0.7, Basophils (%) (Auto) 0.1, Neutrophils # (Auto) 6.18, Lymphocytes # (Auto) 0.59, Monocytes # (Auto) 0.57, Eosinophils # (Auto) 0.05, Basophils # (Auto) 0.01 Last Resulted BMP 03/11/17 11:25 Medical Emergencies . Who to Call and When: Medical Emergencies: If at any time you feel your situation is an emergency, please call 911 immediately. . Non-Emergent Contact Non-Emergency issues call your: Primary Care Provider . . "Provider Documentation" section prepared by Manisha Shrestha. Attending Attestation: Pt seen/examined on day of discharge and discharge plan d/w NOEMI Shrestha. I agree w/ the rodríguez components of her discharge instructions. Lion Szymanski MD . Core Measure Problem Core Measures: None
--- NOTE | 2017-03-13 13:24 | Discharge Summary ---
Discharge Summary Date of Service March 13, 2017. (Manisha Shrestha PA-C) Discharge Summary Admission Date: March 10, 2017 at 13:40 Discharge Date: March 13, 2017 Discharge Disposition: Rehab Principal Diagnosis: Sacral fracture Problems/Secondary Diagnoses: Ambulatory dysfunction, weakness, fall, sacral fracture BPH Dementia Procedures: LUMBAR SPINE CT, PELVIS CT CT DOSE: 914.77 mGy.cm HISTORY: Fall. Lumbar spine and pelvic pain. eval for trauma TECHNIQUE: Multiaxial CT images of the lumbar spine and pelvis were performed and reformatted in the sagittal and coronal plane without the use of contrast. COMPARISON: None. FINDINGS: No fractures or subluxation within the lumbar spine. Mild to moderate disc space narrowing at L4-L5. Moderate disc space narrowing at L5-S1. There are a few scattered sclerotic foci within the lumbar spine and sacrum. These favor bone islands. Paraspinal soft tissues are unremarkable. Nondisplaced horizontal fracture within the sacrum at the S2 level. Mild presacral edema. No fracture or dislocation within the bilateral hips. IMPRESSION: 1. No fracture or subluxation within the lumbar spine. 2. Nondisplaced sacral fracture at the S2 level. Electronically signed by: Giles Brizuela M.D. 03/10/2017 11:54 AM Dictated Date/Time: 03/10/2017 11:46 AM The status of this report is Signed. Draft = Not yet reviewed or approved by Radiologist. Signed = Reviewed and approved by Radiologist. (Manisha Shrestha PA-C) Medication Reconciliation New Medications: Acetaminophen (Tylenol Extra Strength) 500 Mg Tab 1000 MG PO Q8 for 30 Days, #180 TAB Aspirin (Aspirin EC Low Dose) 81 Mg Ectab 81 MG PO QAM for 30 Days Enteral Nutrition Formula (Ensure Plus Vanilla) 1 Can Liqd 1 CAN PO QID for 30 Days Lidocaine (Lidocaine) 1 Patch Tdsy 2 PATCH TD QAM for 3 Days Continued Medications: Cholecalciferol (Vitamin D3) Unknown Strength Tab 1 TAB PO DAILY Cyanocobalamin (Vitamin B-12) Unknown Strength Tab 1 TAB PO DAILY Donepezil Hydrochloride (Aricept) Unknown Strength Tab 1 TAB PO DAILY Finasteride (Proscar) Unknown Strength Tab 1 TAB PO DAILY Memantine (Namenda) Unknown Strength Tab 1 TAB PO DAILY Terazosin Hcl (Hytrin) Unknown Strength Cap 1 CAP PO DAILY Discharge Exam Review of Systems: Constitutional: No chills, No fatigue, No fever, No sweats, No weakness Respiratory: No cough, No hemoptysis, No shortness of breath Cardiovascular: No chest pain, No edema Abdomen: No constipation, No diarrhea, No nausea, No pain, No vomiting Musculoskeletal: + joint pain, + muscle pain, No calf pain, No swelling Genitourinary - Male: No dysuria, No hematuria Neurologic: No numbness/tingling, No weakness Psychiatric: No anxiety, No depression symptoms Hematologic / Lymphatic: No abnormal bleeding/bruising Integumentary: No itch, No new/changing skin lesions, No rash Physical Exam: General Appearance: no apparent distress Eyes: normal inspection, PERRL ENT: hearing grossly normal Neck: supple Respiratory/Chest: lungs clear, no respiratory distress, no accessory muscle use Cardiovascular: regular rate, rhythm Abdomen / GI: normal bowel sounds, non tender, soft Extremities: no calf tenderness, no pedal edema Neurologic/Psychiatric: alert, normal mood/affect, oriented x 3 Skin: normal color, warm/dry, no rash (Manisha Shrestha, NOEMI-C) Hospital Course HPI on admission: This patient is a pleasant 86-year-old male that presents to the emergency department with complaints of left hip pain and lower back pain. The patient sustained a fall 6 days ago while getting out of bed. He reports that he slipped. He denies any symptoms prior such as dizziness, heart palpitations, chest pain or pressure or severe headache. He landed on his buttocks. He denies hitting his head. He has had difficulty ambulating since the fall. Any movement seems to make the pain worse. He has been using Aspercreme, which helps with the pain at rest. He denies any recent illnesses. He does note a poor appetite. He is a vegetarian. The patient's says that he only eats a few pieces of tofu and and drinks Ensure daily. Ambulatory dysfunction, weakness, fall, sacral fracture: - Admit med/surg observation - Tylenol 1000 mg q8 hrs hours PRN, Ultram for more severe pain, and Lidoderm patch- pain well-controlled -- Patient did not take Tramadol - Consulted PT/OT - b12/folate and vitamin D- WNL BPH: Continue Hytrin and Proscar Dementia: Continue Aricept and Namenda DVT prophylaxis: Heparin, TEDS, SCDs CODE STATUS: LEVEL I, FULL CODE Dispo: Discharge to [facility] - PT/OT recommendations- inpatient rehab Total Time Spent: Greater than 30 minutes This includes examination of the patient, discharge planning, medication reconciliation, and communication with other providers. (Manisha Shrestha, PABillC) Attending Attestation: Pt seen/examined, chart reviewed, and discharge plan d/w NOEMI Shrestha. I agree w/ the rodríguez components of her discharge summary. 86yo male with ambulatory dysfunction, BPH, and dementia who presented with low back pain due to sacral fracture. He was admitted for pain control and PT/OT evals. PT/OT both recommended rehab. He was ultimately transferred to [facility] for such. No infectious or metabolic abnormalities were found to account for his recent fall; by his history the fall was accidental. Discharge exam: gen - nad back - kyphotic; mild tenderness to palpation over sacral region heart - RRR lungs - CTA b/l abd - soft, NT ext - no edema Lion Szymanski MD (Lion Szymanski MD) Discharge Instructions Please refer to the electronic Patient Visit Report (Discharge Instructions) for additional information. (Manisha Shrestha ., PA-C) Follow-Up Follow-up with [facility] provider within 24-48 hrs Please follow-up with your PCP within 5-7 days after discharge from [facility] Please follow-up/keep all of your subspecialty appointments (Manisha Shrestha, PA-C) [facility]
[2017-03-13 13:29] VITALS: BP 123/64; PULSE 73; TEMP 36.5; O2SAT 93
--- NOTE | 2017-04-03 13:52 | EDITING REQUIRED CODING QUERY ---
SUPPORTING DIAGNOSIS NEEDED A supporting diagnosis is required for the test/procedure performed on this patient in order for us to be reimbursed by the patient's insurance. Please provide a supporting diagnosis for the following test/procedure listed below next to the test name along with your signature. *If there is no additional diagnosis for this patient that would support the following test/procedure please document that below next to the test/procedure. Test(s)/Procedure(s) that require a supporting diagnosis: * VITAMIN D, 25- HYDROXY DIAGNOSIS: Provider Signature: ___osteoporosis, sacral fracture Date: __04.06.16 Thank you Zita [place] [employer] Once completed, please kindly fax back to [phone] For questions please call [phone]
== END 2017-03-13 14:13 ==
LOC: ENRESERVDT → ENRESERVTM → C.EDB 10:23 → C.MS2W 13:40 → EDBEDREQ 14:23
PROVIDERS: ADMIT Family Medicine; ATTEND Internal Medicine
DX: S32.10XA Unspecified fracture of sacrum, initial encounter for closed fracture (principal); W06.XXXA Fall from bed, initial encounter; R26.9 Unspecified abnormalities of gait and mobility; R53.1 Weakness; N40.0 Benign prostatic hyperplasia without lower urinary tract symptoms; F03.90 Unspecified dementia, unspecified severity, without behavioral disturbance, psychotic disturbance, mood disturbance, and anxiety; Z79.82 Long term (current) use of aspirin; M81.0 Age-related osteoporosis without current pathological fracture